=== PATIENT | male | born 1955 | race Caucasian/White ===

== ENCOUNTER 2016-08-22 23:55 | Emergency (ER) | payer OTHER, MEDICARE ==
[~2016-08-22] VITALS: Ht 175.3 cm; Wt 100.0 kg
[2016-08-23] VITALS: BP 151/90; PULSE 86; RESP 16; TEMP 98.4; O2SAT 98
[2016-08-23] MEDS ORDERED: PANT20TA2 PO (00:14)
[2016-08-23] MEDS ORDERED: VITA100064 PO (00:14)
[2016-08-23] MEDS ORDERED: WARF-18 PO (00:14)
[2016-08-23] MEDS ORDERED: DICY10CA12 PO (00:14)
[2016-08-23] MEDS ORDERED: OXYC1TAB63 PO (00:14)
[2016-08-23] MEDS ORDERED: CREO3000 PO (00:14)
[2016-08-23 01:14] LABS: INTERNATIONAL NORMALIZED RATIO 1.8 RATIO; PROTHROMBIN TIME - PATIENT 20.5 SEC (9.8-11.6)
--- NOTE | 2016-08-23 01:31 | PD ---
HPI Chief Complaint: Fall Time Seen by Provider: 00:30 Travel History International Travel<30 days: No Contact w/Intl Traveler<30days: No Traveled to known affect area: No History of Present Illness HPI 61-year-old male presents to the emergency department for evaluation of head injury. This evening just prior to arrival to the emergency department while working with his son between 2 concrete white he misstepped and slipped and hit his left side of the head against a metal bar. Patient reports excruciating pain. Patient does not report loss of consciousness. Patient does not report upper extremity or lower extremity numbness tingling or weakness. Patient does not report neck injury. Patient does take Coumadin daily for history of pulmonary embolism. Pain 12/31. PFSH Past Medical History Narrative Medical PE pancreatitis IBS GERD tobacco use nursing notes reviewed Hx Anticoagulant Therapy: Yes Diminished Hearing: No Gastrointestinal Disorders: Yes (IBS) GERD: Yes Medical other: Yes (degenerative disc disease, sciatica right side) Musculoskeletal: Yes Respiratory: Yes (PE) Pancreatitis: Yes Past Surgical History Cholecystectomy: Yes Genitourinary Surgery: Yes (bladder expanded) Other Surgery: Yes Social History Alcohol Use: No Tobacco Use: Yes (dip) Substance Use: No Allergies-Medications (Allergen,Severity, Reaction): Coded Allergies: Cortisone (Verified Allergy, Severe, rash, 08/23/16) Gabapentin (Verified Allergy, Severe, Swelling, 08/23/16) Prednisone (Verified Allergy, Severe, Rash, 08/23/16) Reported Meds & Prescriptions Reported Meds & Active Scripts Active Reported Vitamin D (Cholecalciferol) 1,000 Unit Tab 1,000 Units PO DAILY Oxycodone-Acetaminophen 5-325 mg Tab 1 Tab PO Q6H PRN Dicyclomine (Dicyclomine HCl) 10 Mg Cap 10 Mg PO QID Pantoprazole (Pantoprazole Sodium) 20 Mg Tab 20 Mg PO DAILY Creon (Pancrelipase) 3,000-9,500-15,000 Units Cap 3 Cap PO TIDPC Warfarin 2.5 Mg Tab 2.5 Mg PO DAILY Review of Systems Except as stated in HPI: all other systems reviewed are Neg Physical Exam Narrative GENERAL: Well-developed well-nourished male in no acute distress no respiratory distress SKIN: Warm and dry. HEAD: Atraumatic. Normocephalic. EYES: Pupils equal and round. No scleral icterus. No injection or drainage. ENT: No nasal bleeding or discharge. Mucous membranes pink and moist. NECK: Trachea midline. No JVD. CARDIOVASCULAR: Regular rate and rhythm. RESPIRATORY: No accessory muscle use. Clear to auscultation. Breath sounds equal bilaterally. GASTROINTESTINAL: Abdomen soft, non-tender, nondistended. Hepatic and splenic margins not palpable. MUSCULOSKELETAL: Extremities without clubbing, cyanosis, or edema. No obvious deformities. NEUROLOGICAL: Awake and alert. No obvious cranial nerve deficits. Motor grossly within normal limits. Five out of 5 muscle strength in the arms and legs. Normal speech. PSYCHIATRIC: Appropriate mood and affect; insight and judgment normal. Data Data Last Documented VS Vital Signs Date Time Temp Pulse Resp B/P Pulse Ox O2 Delivery O2 Flow Rate FiO2 08/23/16 00:00 98.4 86 16 151/[address] Brain W/O Iv Contrast(Rout) (08/23/16 ) Ct Cerv Spine W/O Contrast (08/23/16 ) Prothrombin Time / Inr (Pt) (08/23/16 00:30) ^ Saline Lock (08/23/16 00:30) Labs Laboratory Tests Test 08/23/16 00:45 Prothrombin Time 20.5 SEC Prothromb Time International 1.8 RATIO Ratio MDM Medical Decision Making Medical Screen Exam Complete: Yes Emergency Medical Condition: Yes Medical Record Reviewed: Yes Interpretation(s) INR: 1.8 Vital Signs Date Time Temp Pulse Resp B/P Pulse Ox O2 Delivery O2 Flow Rate FiO2 08/23/16 00:00 98.4 86 16 151/90 98 Differential Diagnosis Minor CHI, ICH, skull fracture, Coumadin coagulopathy Narrative Course IV access obtained INR specimen collected and patient sent for CT imaging of the brain and neck Patient and family informed of INR and imaging results; patient stable for outpatient management Diagnosis Primary Impression: Head injury, closed Qualified Code: S09.90XA - Head injury, closed, initial encounter Additional Impression: Contusion of head Qualified Code: S00.93XA - Contusion of head, unspecified part of head, initial encounter Referrals: Primary Care Physician 2 days Patient Instructions: General Instructions Additional Instructions: Follow head injury precautions 24 hours Apply ice intermittently to areas soft tissue swelling for the first 12-24 hours Follow-up with your primary care provider Return to the emergency department for any concerns or change condition take acetaminophen/Tylenol as needed for fever 100.4 use Fahrenheit or greater or for minor pain Med/Other Pt SpecificInfo: No Change to Meds Disposition: 01 DISCHARGE HOME Condition: Miya Marie MD Aug 23, 2016 01:31
--- NOTE | 2016-08-23 01:38 | RADRPT ---
EXAM DATE/TIME: 08/23/2016 01:19 [facility] COMPARISON: No previous studies available for comparison. INDICATIONS : Trauma, fall. Hit left side of head on railing. RADIATION DOSE: 56.35 CTDIvol (mGy) MEDICAL HISTORY : None SURGICAL HISTORY : None. ENCOUNTER: Initial ACUITY: 1 day PAIN SCALE: 10/10 LOCATION: Left cranial TECHNIQUE: Multiple contiguous axial images were obtained of the head. Using automated exposure control and adj ustment of the mA and/or kV according to patient size, radiation dose was kept as low as reasonably a chievable to obtain optimal diagnostic quality images. FINDINGS: CEREBRUM: The ventricles are normal for age. No evidence of midline shift, mass lesion, hemorrhage or acute in farction. No extra-axial fluid collections are seen. POSTERIOR FOSSA: The cerebellum and brainstem are intact. The 4th ventricle is midline. The cerebellopontine angle i s unremarkable. EXTRACRANIAL: The visualized portion of the orbits is intact. SKULL: The calvaria is intact. No evidence of skull fracture. CONCLUSION: 1. No evidence of acute intracranial pathology. No masses are identified. Efren Ch MD on August 23, 2016 at 1:36 Board Certified Radiologist. This report was verified electronically.
--- NOTE | 2016-08-23 01:45 | RADRPT ---
EXAM DATE/TIME: 08/23/2016 01:19 [facility] COMPARISON: No previous studies available for comparison. INDICATIONS : Trauma, fall. RADIATION DOSE: 37.38 CTDIvol (mGy) MEDICAL HISTORY : None SURGICAL HISTORY : None. ENCOUNTER: Initial ACUITY: 1 day PAIN SCALE: 10/10 LOCATION: neck TECHNIQUE: Volumetric scanning of the cervical spine was performed. Multiplanar reconstructions in the sagittal, coronal and oblique axial planes were performed. Using automated exposure control and adjustment o f the mA and/or kV according to patient size, radiation dose was kept as low as reasonably achievable to obtain optimal diagnostic quality images. FINDINGS: Sagittal images demonstrate normal vertebral body alignment and curvature. The odontoid is intact. Th e occipital condyles and lateral masses of C1 are intact. Axial images were performed from C2-C3 to C7-T1. C2-C3: No significant abnormalities identified. C3-C4: There is osteophytic ridging along the posterior aspect of vertebral body. There is uncovertebral juliano nt hypertrophy on the right side. There is mild right sided neural foraminal narrowing. C4-C5: There is osteophytic ridging along the posterior aspect of vertebral body. There is no significant sp inal canal stenosis. C5-C6: There is mild annular bulge of the disc. There is uncovertebral joint hypertrophy on the right side. There is mild right sided neural foraminal narrowing. C6-C7: There is mild diffuse annular bulge of the disc. The neural foramina are clear bilaterally. There is no significant spinal canal stenosis. C7-T1: No significant abnormalities identified. CONCLUSION: 1. Mild degenerative changes as described above. There is no evidence of acute fracture. Efren Ch MD on August 23, 2016 at 1:42 Board Certified Radiologist. This report was verified electronically.
== END 2016-08-23 03:29 | disposition home or self-care (01) ==
LOC: NEPC 23:55
DX: S09.90XA Unspecified injury of head, initial encounter (principal); S00.93XA Contusion of unspecified part of head, initial encounter; Z72.0 Tobacco use; Z79.01 Long term (current) use of anticoagulants; Z86.711 Personal history of pulmonary embolism; Z87.19 Personal history of other diseases of the digestive system; Z87.39 Personal history of other diseases of the musculoskeletal system and connective tissue; W01.198A Fall on same level from slipping, tripping and stumbling with subsequent striking against other object, initial encounter
CPT/HCPCS: 70450; 72125; 85610